=== PATIENT | female | born 1995 | race Two or more races ===

== ENCOUNTER 2024-08-17 22:20 | Inpatient (IN) | payer OTHER ==
[~2024-08-17] VITALS: Ht 167.6 cm; Wt 74.8 kg
[2024-08-17 22:00] VITALS: BP 121/76
[2024-08-17] MEDS ORDERED: PRENATAL + DHA1 EAC1 PO (22:24)
[2024-08-17] MEDS ORDERED: RINGERS SOLUTION,LACTATED 1,000 ML IV SCH (22:30)
[2024-08-17 23:23] LABS: BASO % 0.3 % (0.1-1.2); EOS # 0.16 (0.04-0.54); EOS % 1.5 % (0.7-7.0); LYMPH # 1.80 (1.18-3.74); LYMPH % 16.9 % (19.3-53.1); MEAN PLATELET VOLUME 11.80 fl (9.4-12.4); MONO # 0.87 (0.24-0.82); MONO % 8.2 % (4.7-12.5); NEUT # 7.76 (1.56-6.13); NEUT % 72.6 % (34.0-71.1); RED CELL DISTRIBUTION WIDTH 13.2 % (11.6-14.4); URINE APPEARANCE Clear; URINE BILIRRUBIN Negative (NEGATIVE); URINE COLOR Yellow; URINE GLUCOSE Negative (NEGATIVE); URINE KETONE Trace (NEGATIVE); URINE LEUKOCYTE Negative; URINE NITRATE Negative; URINE PROTEIN Trace (NEGATIVE); URINE UROBILINOGEN 1.0 E.U./dl
[2024-08-17 23:24] LABS: URINE BACTERIA 3666.9 uL (0.0-1933); URINE EPITHELIAL CELLS 46.1 uL (0.0-38.8); URINE RBC 23.3 uL (0.0-20.8); URINE WBC 18.7 uL (0.0-23.2)
[2024-08-17 23:31] VITALS: BP 119/81
[2024-08-17 23:50] LABS: URINE CAST 0.29 uL (0.0-1.40)
[2024-08-17 23:51] LABS: URINE BLOOD TRACE
[2024-08-17 23:53] LABS: INR < 0.93
[2024-08-18] VITALS (8 sets, daily range): BP systolic 101–137; BP diastolic 65–71
[2024-08-18] MEDS ORDERED: HYDROCORTISONE 2.5% 30 GM TUBE RECTAL SCH (01:14)
[2024-08-18] MEDS ORDERED: OXYTOCIN 1,000 ML IV SCH (01:15)
[2024-08-18] MEDS ORDERED: CHLORHEXIDINE GLUCONATE 120 ML BOTTLE TOP SCH (01:15)
[2024-08-18] MEDS ORDERED: ACETAMINOPHEN 500 MG GEL..CAP PO PRN (01:15)
[2024-08-18] MEDS ORDERED: METHYLERGONOVINE MALEATE 0.2 MG/ML AMPUL IM STA (01:32)
[2024-08-18] MEDS ORDERED: ERYTHROMYCIN BASE OPHT 1GM EACH TUBE OP ONE (01:45)
[2024-08-18 06:23] LABS: BASO % 0.3 % (0.1-1.2); EOS # 0.02 (0.04-0.54); EOS % 0.1 % (0.7-7.0); LYMPH # 1.03 (1.18-3.74); LYMPH % 5.2 % (19.3-53.1); MEAN PLATELET VOLUME 12.50 fl (9.4-12.4); MONO # 0.80 (0.24-0.82); MONO % 4.0 % (4.7-12.5); NEUT # 17.96 (1.56-6.13); NEUT % 89.7 % (34.0-71.1); RED CELL DISTRIBUTION WIDTH 12.9 % (11.6-14.4)
[2024-08-18] MEDS ORDERED: PNV,CALCIUM 72/IRON/FOLIC ACID 1 TAB TABLET PO SCH (09:00)
[2024-08-19 02:33] VITALS: BP 108/75
[2024-08-19 08:29] VITALS: BP 104/72
[2024-08-19 18:07] VITALS: BP 110/78
[2024-08-20 00:46] VITALS: BP 111/70
[2024-08-20 08:25] VITALS: BP 103/70
== END 2024-08-20 14:30 | disposition home or self-care (01) | DRG 807 ==
LOC: LDR 22:20 → OB/GYN 22:20 → LDR 22:50 → OB/GYN 08-18 01:28
PROVIDERS: ADMIT Obstetrics & Gynecology; ATTEND Obstetrics & Gynecology
PROC: 4A1HXCZ Monitoring of Products of Conception, Cardiac Rate, External Approach (ICD-10-PCS; 2024-08-17)
PROC: 10E0XZZ Delivery of Products of Conception, External Approach (ICD-10-PCS; principal; 2024-08-18)
DX: O80 Encounter for full-term uncomplicated delivery (principal); Z37.0 Single live birth; Z3A.37 37 weeks gestation of pregnancy